=== PATIENT | male | born 1945 | race Caucasian/White ===

== ENCOUNTER 2017-05-26 00:27 | Day surgery (SDC) | payer MEDICARE, OTHER ==
[~2017-05-26] VITALS: Ht 188 cm; Wt 108.0 kg
[2017-05-26] VITALS (10 sets, daily range): BP systolic 108–157; BP diastolic 54–87; PULSE 47–66; RESP 12–19; O2SAT 91–97
[~2017-05-26 00:27] MED LIST: APIX5TAB PO; CRES20T PO; HYG25 PO; LISI-567 PO; MAGN400T4 PO; METO25TA6 PO; MULT1CAP33 PO; NITR0.4T SL; TICA90TA PO
[2017-05-26] MEDS: 0.9% Sodium Chloride 1,000 ML IV SCH ×3 (08:10→18:10)
--- NOTE | 2017-05-26 13:00 | NUR ---
ADMISSION NOTE MALE PT ADMITTED FOR PACEMAKER. DISCUSSED PLAN OF CARE WITH PT AND . SEE ADMIT AND FLOW SHEET
[2017-05-26] MEDS ORDERED: ACET-2561 PO (14:10)
[2017-05-26] MEDS ORDERED: ECON15CR10 TOP (14:13)
[2017-05-26] MEDS ORDERED: DESO15CR25 TOP (14:13)
[2017-05-26] MEDS ORDERED: MUPI22OI2 TOP (14:13)
[2017-05-26] MEDS ORDERED: KTC2C15 TP (14:13)
[2017-05-26] MEDS ORDERED: TRIA15OI9 TOP (14:13)
[2017-05-26] MEDS ORDERED: Heparin 10,000 Unit/1,000 mL NS Premix IV ONE (14:25)
[2017-05-26] MEDS ORDERED: 0.9% Sodium Chloride 250 ML ONE (14:25)
[2017-05-26] MEDS ORDERED: Bupivacaine-MPF 0.5% 30 mL Inj ONE (14:25)
[2017-05-26] MEDS ORDERED: CeFAZolin 2 Gm/50 mL D5W Duplex Bag IV ONE (15:01)
[2017-05-26] MEDS ORDERED: fentaNYL-PF 50 mCg/mL 2 mL Inj ONE ×2 (15:09→15:53)
[2017-05-26] MEDS ORDERED: Ondansetron 2 mg/mL 2 mL Inj IVPUSH PRN (16:40)
[2017-05-26] MEDS ORDERED: HYDROcodone-APAP 5-325 mg Tablet PO PRN (16:40)
--- NOTE | 2017-05-26 17:11 | DRSVH ---
PROCEDURE: X-RAY CHEST ONE VIEW, PORTABLE ([id number]) INDICATIONS: For new leads placed TECHNIQUE: One view of the chest was acquired. COMPARISON: None. FINDINGS: Surgical changes and devices: Sternotomy wires, dual-chamber cardiac pacemaking device and leads appe ar normal.. Lungs and pleura: No pleural effusions or pneumothorax. Lungs are clear. Mediastinum: Mediastinal contours appear normal. Heart size is normal. Bones and chest wall: No suspicious bony lesions. Overlying soft tissues appear unremarkable. IMPRESSION: Mildly reduced inspiratory volume. No pneumothorax after pacemaking device/lead change. Dictated by: Noe Vaz M.D. on 05/26/2017 at 17:08 Approved by: Noe Vaz M.D. on 05/26/2017 at 17:09
--- NOTE | 2017-05-26 17:47 | NUR ---
Post pacemaker- Patient returned to [facility] post procedure. Left upper chest incision site dressing intact with small amt. of bloody drainage, and outlined with marker. Patient denies discomfort. Monitor shows paced rhythm 60's.
--- NOTE | 2017-05-26 19:02 | NUR ---
Transfer note- Transferred patient via bed to [facility]. Report given to Harjeet Bush RN.
--- NOTE | 2017-05-26 20:27 | OP ---
[address] [address] OPERATIVE REPORT PATIENT: MAYANK CHAPMAN : 1945 MR#: [id number] ADMIT: 05/26/2017 JOB ID: [id number] DATE OF SURGERY: 05/26/2017 PREOPERATIVE DIAGNOSIS(ES): Sick sinus syndrome. POSTOPERATIVE DIAGNOSIS(ES): Sick sinus syndrome. PROCEDURES PERFORMED: 1. Dual-chamber pacemaker implantation. 2. Fluoroscopy. SURGEON: Saw Frederick MD, electrophysiology attending. VENEER CUTTER: Enrique Doe IMPLANTED DEVICES: 1. [employer] pulse generator, model EH1578, serial #[id number]. 2. Right atrial lead [employer], [id number], 52 cm, serial #[id number]. 3. RV lead [employer], [id number], 58 cm, serial #[id number]. ANESTHESIA: Bolus dosing of Versed and fentanyl were utilized for an appropriate level of sedation. INDICATION: The patient is a pleasant 72-year-old man with bypass grafting, preserved LV function, paroxysmal atrial fibrillation and profound sinus bradycardia along with syncope. After discussion of risks and benefits of pacemaker implantation, he opted to proceed. PROCEDURAL DESCRIPTION: Following informed signed consent, the patient was taken to the EP laboratory in a fasting nonsedated state, where he was prepped and draped in usual sterile fashion. The left infraclavicular region was infiltrated with 40 cc of a 50/50 mixture of bupivacaine and lidocaine. Once adequate sedation was achieved, a 3 cm transverse incision was performed 2 cm below the left clavicle. Dissection was carried down to the pectoralis fascia. The pocket was then fashioned using a combination of electrocautery and blunt dissection. Once adequate anesthetic was achieved, access was gotten to the left axillary vein with a micropuncture needle twice to deploy two 0.035, 3 mm J guidewires. Over the first of these, an 8-Egyptian tear-away sheath was advanced. Once the guidewire was removed, an active fixation lead was advanced in the RV outflow tract onto the RV apex. The lead was affixed in position. Using associated active fixation screw, was connected to the external analyzer and demonstrated appropriately sensed R waves, impedance. Capture threshold was checked to 10 V and there was no evidence of diaphragmatic stimulation. Attention was now paid to the right atrial lead. Over the other previously deployed J guidewire, another 8-Egyptian tear-away sheath was advanced. Once the guidewire was removed, an active fixation lead was advanced to the atrial appendage and was affixed in position using its associated active fixation screw. The lead was connected to external analyzer and demonstrated appropriately sensed P waves, impedance. Capture threshold was checked to 10 V and there was no evidence of diaphragmatic stimulation. Once the position and redundancy of leads had been confirmed by multiple fluoroscopic views, the leads were anchored to the prepectoralis fascia. Using their associated anchoring sleeves and two Ethibond sutures, the leads were connected to a generator. The pocket was affixed to the floor of the pocket using 1-0 Ti-Cron suture. The incision was closed with running layers of absorbable suture. The wound was dressed with skin adhesive. At the end of the procedure, needle, sponge instrument counts were correct. COMPLICATIONS: None. ESTIMATED BLOOD LOSS: Negligible. DEVICE MEASURED DATA: 1. Right atrial lead 3.0 mV, 460 ohms, 0.75 V at 0.4 msec. 2. RV lead greater than 12 mV, 550 ohms, 0.5 V at 0.4 msec. FINAL PROGRAMMED PARAMETERS: DDDR 60-130 beats per minute with VIP on. IMPRESSION: Successful dual-chamber pacemaker implantation. PLAN: 1. Stat portable chest x-ray, PA and lateral chest x-ray in the morning. 2. IV Ancef 3. Resume Eliquis tomorrow morning if wound site looks stable. 4. Pacemaker Clinic in one week. ATTENDING STATEMENT: Saw Frederick MD, electrophysiology attending, was present for and supervised/performed all aspects of this procedure.
[2017-05-27 00:23] VITALS: BP 146/81; PULSE 60; RESP 20; O2SAT 94
[2017-05-27] MEDS: CeFAZolin Inj 1 GM in IV Premix 1 EACH IV SCH ×2 (00:59→08:30)
[2017-05-27] MEDS: 0.9% Sodium Chloride 1,000 ML IV SCH (02:38)
[2017-05-27 04:20] VITALS: BP 143/75; PULSE 64; RESP 18; O2SAT 95
--- NOTE | 2017-05-27 05:52 | NUR ---
coagulation operator PT slept well all night with no voiced complaints, tele A-V paced and LT arm in sling. Dressing to LT chest small old sang drainage and no hematoma.
--- NOTE | 2017-05-27 08:01 | PCM.DIMED ---
Discharge Instructions Date of Service May 27, 2017 Dates of Hospitalization Discharge Diagnosis Discharge Diagnosis Syncope Sinus Bradycardia Hypertension Diet Discharge Diet: Heart Healthy Activity Discharge Activity: Other (keep incision dry one day. Do not extend left elbow high above shoulder for one month. Do not lift, push or pull more than 10 lbs for one month.) Call your provider Call your provider for: Fever or Chills, Bleeding, Excessive diarrhea Patient Instructions Follow-up in: 1 week Mid-level Provider (F9): Honorio Fair PA-C Follow-up with Mid-level in: 6 weeks Honorio Fair PA-C May 27, 2017 08:01
[2017-05-27] MEDS ORDERED: CEPH500C PO (08:04)
--- NOTE | 2017-05-27 08:33 | DIS ---
[address] [address] DISCHARGE SUMMARY PATIENT: MAYANK CHAPMAN : 1945 MR#: [id number] ADMIT: 05/26/2017 JOB ID: [id number] DIS: 05/27/2017 REASON FOR ADMISSION: Pacemaker implant. CHIEF COMPLAINT: Syncope. BRIEF HISTORY: The patient is a pleasant 72-year-old man with known coronary artery disease who is status post bypass grafting and recent PCI but has preserved LV function. He has got a history of paroxysmal atrial fibrillation and is anticoagulated. He experienced a syncopal episode with a fall to the ground, minor injury. Recordings of heart rhythm have shown rates as slow as the 30s in the middle of the day. He was advised of the benefit of a pacemaker implant and wished to receive one. COURSE IN HOSPITAL: The patient was admitted through the [facility] and taken to the senior cytogenetics laboratory director, where he received a dual-chamber cardiac pacemaker without incident. Afterward he was taken back to the [facility] for recovery from sedation and then transferred up to the [facility] for overnight telemetry monitoring. He did well overnight and in the morning was ambulatory without difficulty. His chest x-ray showed good lead position and no pneumothorax. The pacemaker site was closed and dry and there is no hematoma. Device evaluation shows excellent capture and sensing thresholds for both leads and he has been atrially paced 60% of the time. He felt well for discharge home and was having no complaints of pain, lightheadedness or shortness of breath. DISPOSITION: The patient was discharged home in good condition with a follow up appointment at the [facility] Cardiology office in one week. He was asked not to extend his left elbow above his shoulder for one month, and not to lift, push or pull more than 10 pounds with the left arm for one month. He will follow his heart healthy diet and take medications as prescribed. DISCHARGE MEDICATIONS: 1. Cephalexin 500 mg b.i.d. for one week only. 2. Acetaminophen 500 mg tablet daily p.r.n. pain. 3. Apixaban 5 mg b.i.d. 4. Chlorthalidone 12.5 mg daily. 5. Desonide cream applied topically as needed. 6. Econazole nitrate cream applied topically b.i.d. 7. Ketoconazole 15 mg cream topically as needed. 8. Lisinopril 20 mg b.i.d. 9. Magnesium oxide 400 mg daily. 10. Metoprolol tartrate 12.5 mg b.i.d. 11. Multivitamin 1 daily. 12. Mupirocin ointment topically applied t.i.d. 13. Nitroglycerin sublingual 0.4 mg tablet p.r.n. chest pain. 14. Rosuvastatin 20 mg daily. 15. Brilinta 90 mg b.i.d. 16. Triamcinolone acetonide ointment applied b.i.d. FINAL DIAGNOSES: 1. Syncope. 2. Marked sinus bradycardia. 3. Coronary artery disease. 4. Hypertension. 5. Dyslipidemia.
--- NOTE | 2017-05-27 09:42 | NUR ---
discharge paperwork reviewed, no questions at this time. IV's removed and tele DC'ed. pt denies pain/distress. pt refuses W/C ride and chooses to ambulate to private car to return to private home with .
--- NOTE | 2017-05-27 12:19 | DRSVH ---
PROCEDURE: X-RAY CHEST, TWO VIEWS ([id number]) INDICATIONS: For new lead placement TECHNIQUE: 2 views of the chest were acquired. COMPARISON: [facility], CR, XR CHEST 1VW (PORTABLE), 05/26/2017, 16:46. FINDINGS: Surgical changes and devices: Stable position of left pacer. Median sternotomy wires. Lungs and pleura: No pleural effusions or pneumothorax. Lungs are clear. Mediastinum: Mediastinal contours are normal. Heart size is normal. Bones and chest wall: No suspicious bony abnormalities. Soft tissues appear unremarkable. IMPRESSION: Stable chest post pacer placement. Dictated by: Ezequiel TELLO Interpreted: Stew Wei MD on 05/27/2017 at 8:14 Approved by: Gavin Wei M.D. on 05/27/2017 at 12:17
== END 2017-05-27 09:42 | disposition home or self-care (01) ==
LOC: SOUO 00:27 → MPC 18:48 → SOUO 05-27 09:42
PROVIDERS: ATTEND Internal Medicine Cardiovascular Disease
DX: I49.5 Sick sinus syndrome (principal); I25.10 Atherosclerotic heart disease of native coronary artery without angina pectoris; R55 Syncope and collapse; I48.0 Paroxysmal atrial fibrillation; I35.0 Nonrheumatic aortic (valve) stenosis; I10 Essential (primary) hypertension; E78.5 Hyperlipidemia, unspecified; E78.00 Pure hypercholesterolemia, unspecified; Z95.1 Presence of aortocoronary bypass graft; Z95.5 Presence of coronary angioplasty implant and graft; Z79.01 Long term (current) use of anticoagulants; Z79.02 Long term (current) use of antithrombotics/antiplatelets
CPT/HCPCS: 33208; 71010; 71020; 93005; 99152; 99153; C1769; C1785; C1892; C1898; J0690; J1200; J1644; J2250; J3010; J7050